=== PATIENT | male | born 1955 | race Caucasian/White ===

== ENCOUNTER → 2021-09-13 10:30 | Outpatient (BNVA) | payer OTHER, SELFPAY | PROVIDERS: PCP Internal Medicine; Visit Provider Hospitalist ==

== ENCOUNTER → 2021-12-01 08:55 | Outpatient (BNVA) | payer OTHER, SELFPAY | PROVIDERS: PCP Internal Medicine; Visit Provider Hospitalist ==

== ENCOUNTER → 2022-03-29 09:52 | Outpatient (BNVA) | payer OTHER, SELFPAY | PROVIDERS: PCP Internal Medicine; Visit Provider Hospitalist | DX: Z13.89 Encounter for screening for other disorder (principal) ==

== ENCOUNTER → 2022-11-15 09:43 | Outpatient (BNVA) | payer OTHER, SELFPAY | PROVIDERS: PCP Internal Medicine; Visit Provider Hospitalist | DX: R91.8 Other nonspecific abnormal finding of lung field (principal); J45.909 Unspecified asthma, uncomplicated; J31.0 Chronic rhinitis ==

== ENCOUNTER → 2023-05-24 09:13 | Outpatient (REF) | payer OTHER, SELFPAY | LOC: HO.SL 09:13 | PROVIDERS: PCP Internal Medicine; Visit Provider Hospitalist | DX: G47.33 Obstructive sleep apnea (adult) (pediatric) (principal) | CPT/HCPCS: 95806 ==

== ENCOUNTER → 2023-05-24 09:26 | Outpatient (BNV) | payer OTHER, SELFPAY | PROVIDERS: PCP Internal Medicine; Visit Provider Internal Medicine | DX: G47.33 Obstructive sleep apnea (adult) (pediatric) (principal) | CPT/HCPCS: 95806 ==

== ENCOUNTER 2023-08-02 09:17 | Outpatient (AMB) | payer OTHER, SELFPAY ==
--- NOTE | 2023-08-02 09:25 | A.OFFVIS_ITS ---
Intake Vital Signs 08/02/23 09:26 Height 5 ft 10 in Weight 210 lb 8.663 oz BMI 30.2 BP 128/70 Blood Pressure Location Rt brachial Position Sitting Pulse 57 Pulse Source Doppler Pulse Oximetry (%) 97 Oxygen Delivery Method Room Air Intake Visit Reasons: Sleep Study Results Allergies No Known Allergies Allergy (Verified 08/02/23 09:27) HPI HPI Comments History of Present Illness Details The patient is a 68-year-old gentleman very healthy and active with a known history of hypertension who apparently was in his usual state health until recently when he was demonstrating some increased daytime drowsiness. The patient did undergo home sleep study it demonstrated mild sleep apnea his side and severe sleep apnea his back. Based on the abnormal study in his increased cardiovascular risk factors the patient was referred to sleep specialist. The patient did undergo a CPAP titration study demonstrating significant central sleep apnea while titrating the CPAP pressures suggesting a complex sleep apnea. The patient was recommended to start CPAP therapy. Since starting CPAP the patient has been developing worsening sleep quality and also significantly worsening blood pressure now requiring more blood pressure medications. The patient typically sleeps on his side but while wearing the CPAP he needs to sleep on his back because otherwise the mask tends to leak. He does try to use it and has been trying to use it for all night however usually after to 3 hours can no longer tolerated. Based on the download data from the CPAP his AHI still elevated at 8. It is not clear how many of those episodes are central versus obstructive. Based on the patient's lack of response to CPAP it is very likely that he has complex sleep apnea. Based on the complexity of his sleep disorder the patient needs to have a in-lab sleep study in order to better quantify the degree central sleep apnea that he has and then titrate him to assess the best PAP therapy for his complex sleep apnea. It is my suspicion that he will a different PAP modality. In the meantime the patient does have significant difficulty with sleeping tolerating his CPAP. Therefore will try to sleep aid to see if we can assist with his tolerance at this time. Even on CPAP therapy the patient continues to have an elevated [place] score 1224. Continues to daytime drowsiness and now with worsening cardiovascular risk factors. 12/01/2021 the patient is here for a pulmonary follow-up visit. Overall the patient has been doing well. He continues to have daytime drowsiness. He responded well to the trazodone. However, on the 50 mg tablets sometimes he only gets about 4-5 hours of sleep. He was wondering if he could take additional medicine later on the night when he wakes up. However it is best that he takes it altogether. So I will increase his does prior to sleep to 75 mg-100mg. in the meantime he did undergo the in-lab sleep study. We reviewed together. He appears to have severe sleep apnea with an AHI greater than 33. Most of the obstructions or hypopneas. In view of the severe apnea the patient was titrated initially on CPAP in switched over to BiPAP. It appeared that he did better on CPAP between a pressure of 8-12 cm. On the BiPAP is started getting more apneas likely central. By the end of the study he was able to have more REM sleep which is reassuring. He also tried a new mask, N20 which was provided during the sleep study. He is very happy with this mask. I will reach out to his [employer] company to adjust his settings to the recommended APAP 8-12 cm along with the new mask. Otherwise the patient is without any other complaints. 03/29/2022 the patient is here for pulmon bennie follow-up visit. Overall he is doing okay. He has been using the trazodone at nighttime. He is getting about 4-5 hours of sleep. He typically starts getting uncomfortable with the mask up to 4 hours. He does take it off. 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 He is going to try to take the trazodone later on to see if he can get additional sleep. In addition to that we did talk about that is considering changing his mask. He does use a nasal mask which works for him although when he lays on his side tends to leak air. He may do better with a [employer] wisp mask. I will request 1 from the [employer]. In regards of his CPAP is currently set up APAP 8-12. He has an average pressure of 10 cm. His AHI is down to 1.2. No adjustments were made since the machine is working well for him. 06/06/2022 the patient is here for a pulmonary follow-up visit. He started complaining of difficulty tolerating his CPAP. Having significant nasal congestion. like he is getting sinus pressure after using his CPAP. He is using a nasal wisp mask that is comfortable but is only applying pressure of the nasal passages. The patient is agreeable to start a regimen for his rhinitis to try to clear it up. In the meantime he also will benefit from a fullface mask that would allow him to minimize the pressure of the nasal passages. The patient is also plan to see ENT soon. Therefore, he will start his nasal sprays and also sinus rinse at nighttime with the Neti bottle prior to putting on his CPAP and then come follow-up with ENT to see how he is responding to the therapy. In the meantime continue the pressures at the current settings since they are working for him. In addition to that he is using the trazodone. Seems like the 50-75 mg dose is sufficient more than that he gets groggy during the day if he has any difficulties with the trazodone with consider switching it to an alternative agent. 08/10/2022 the patient is here for a pulmonary follow-up visit. Still having some difficulty with the CPAP. Seven hard time with a fullface mask. He is wondering if he can try a different nasal mask. I did have an N30 I available. Is only a small head gear but seem to fit okay. He also should use a chinstrap. One was provided. He will try his CPAP with this new set up to see if she can not tolerated more. In addition to that the trazodone seems to make groggy during the daytime. Therefore, have try Ambien instead. Patient understands that he will fall asleep quicker but she went off much faster hopefully will not have any residual symptoms during daytime. The patient will continue using the CPAP at the current settings. If he does wake up with discomfort because of the pressures that he can always hip off and on on the CPAP to reset the pressure is too low the patient does have daytime drowsiness. His [place] score is elevated 10/06. He was wondering about hypnotics. Explained to him that worse she will need to probably tolerate his CPAP the whole night which to then assess daytime drowsiness after effective CPAP therapy. 11/15/2022 the patient is here for a pulmonary follow-up visit. He is tolerating the CPAP better. This is been reassuring. Feels like he is getting better rest. She is still having some daytime drowsiness however. [place] score is still elevated 08/06. The patient is averaging between 3-5 hours a night. His AHI is around 4.9 in his average pressure is around 10. I will try to increase his pressure some more to try to decrease the AHI below 5. However, we also note that he has of component of central sleep apnea so therefore it is likely that he is having some degree of apneas due to the central component that will not improve by increasing the pressures. Patient has been using Ambien. This appears to be affecting beneficial. I did ask him to take holidays from the medication to make sure that he does not buildup dependency. Will continue to use CPAP in continue to use a sleep aid. Will reassess in 3-4 months. The patient continues to have significant degree of sleep apnea after effectively treating his sleep apnea I did at that point will consider stimulant therapy to treat his persistent drowsiness. 08/02/2023 the patient is here for liss avery follow-up visit. The patient struggling with the CPAP he seems to be tolerating the pressures well and he does use it when he does use it for more than 4 hours but even after doing that he is still feeling like his daytime drowsiness is no better. Therefore he gets frustrated with the fact that he test uses machine that is affecting his sleep and therefore not making any improvements in his quality of life. The patient also was placed on Ambien. However, he had an event where he had at not episodic amnesia episode and amnesia episode that he believes that it was from the Ambien and stop that at that point. Therefore he is struggling with sleep also because he has a hard time sleeping. He also has muscle aches and discomfort. We talked about considering gabapentin. He is willing to try this time. He understands any may cause him some drowsiness in the morning. He have to get use to those side effects. In the meantime we also talked about positional therapy. We did look at the home sleep study in appears that his sleep apnea as much worsening sleeps on his back. He tries not to sleep on his back but he sometimes she is happens to do so. Therefore he will consider positional device to try that keep him from laying on his back. He can not lay on both right and left side he still has a little degree of sleep apnea but not severe. In addition to that we talked about a mandibular device either an elastic device or a mandibular advancement device through a dentist. He is going to consider these therapies as he is failed PAP therapy. Finally, we talked about the hypoglossal nerve stimulator. We talked about the surgical approach and we talked about the pros and cons about it. At this point I would rather try noninvasive approaches to see if he gets benefit and if he does not if he states symptomatic he can always be referred to an ENT doctor for the hypoglossal nerve stimulator evaluation. [facility] Medical History (Updated 08/02/23 @ 09:33 by Roscoe Contreras MD) Chronic rhinitis SUNNY on CPAP Insomnia Hypertension Complex sleep apnea syndrome Social History Patient Tobacco Use Status: Never used Tobacco Review of Systems Const Reports daytime sleepiness, Reports difficulty sleeping and Denies night sweats ENT Denies change in voice, Denies lip swelling, Denies mouth pain, Reports nasal congestion, Reports nasal discharge, Reports post nasal drip, Reports sinus pain, Reports sinus pressure and Denies tongue swelling Card Denies chest pain Resp Reports cough GI Denies abdominal pain Musc Denies no additional complaints Neuro Denies Neuro-related abnormal movements Psych Denies no additional complaints Jimenez/Lymph Denies easy bleeding and Denies lymphadenopathy Aller/Immun Denies lip swelling and Denies tongue swelling Physical Exam Vital Signs: Last Vital Signs Pulse 57 08/02/23 09:26 BP 128/70 08/02/23 09:26 Pulse Ox 97 08/02/23 09:26 Oxygen Delivery Method Room Air 08/02/23 09:26 BMI result Body Mass Index 30.2 Const General: alert Neck Neck: Yes normal visual inspection, Yes full ROM and Yes no lymphadenopathy Chest Chest palpation & inspection: normal inspection of the chest Resp Auscultation: clear to auscultation bilaterally Cardio Rate: regular rate Rhythm: regular rhythm Heart sounds: S1 normal heart sound present and S2 normal heart sound present GI Palpation (GI): Soft to palpation and nontender Auscultation: normal bowel sounds Skin General skin exam: rashes and/or lesions noted Assessment & Plan Assessment & Plan (1) SUNNY on CPAP: Code(s): G47.33 - Obstructive sleep apnea (adult) (pediatric); Z99.89 - Dependence on other enabling machines and devices (2) Insomnia: Code(s): G47.00 - Insomnia, unspecified Qualifiers: Insomnia type: primary Qualified Code(s): F51.01 - Primary insomnia (3) Chronic rhinitis: Code(s): J31.0 - Chronic rhinitis Plan holding APAP 8-14 cm based on titration study, continue N30i medium mask with chin strap( [employer], [place] from [place]) Trial positional therapy and consider OMD Consider hypoglossal nerve stimulator as the last option stopped Ambien start Gabapentin 300mg QHS continue Fluticasone AM continue astelin BID Avoid Afrin products Neti bottle at night Consider repeating PSG once he has a OMD Follow-up 4-6 months Medications: New gabapentin 300 mg PO BEDTIME 30 days 30 caps 5RF Coding Level of Care Code Est Pt Level 4 (65813) Diagnoses SUNNY on CPAP G47.33; Z99.89 Primary insomnia F51.01 Insomnia type: primary Chronic rhinitis J31.0 Time Spent (min) 20
[2023-08-02 09:26] VITALS: BP 128/70; PULSE 57; O2SAT 97; BMI 30.2
== END 2023-08-02 09:59 | disposition home or self-care (01) ==
PROVIDERS: PCP Internal Medicine; Visit Provider Hospitalist
DX: G47.33 Obstructive sleep apnea (adult) (pediatric) (principal); Z99.89 Dependence on other enabling machines and devices; F51.01 Primary insomnia; J31.0 Chronic rhinitis
CPT/HCPCS: 99214

== ENCOUNTER → 2023-08-02 09:17 | Outpatient (BNVA) | payer OTHER, SELFPAY | PROVIDERS: PCP Internal Medicine; Visit Provider Hospitalist ==

== ENCOUNTER 2025-04-18 09:43 | Outpatient (AMB) | payer OTHER, SELFPAY ==
[2025-04-18 09:46] VITALS: BP 150/84; PULSE 60; O2SAT 97; BMI 30.5
--- NOTE | 2025-04-18 09:46 | MHC.OFFVIS ---
Vital Signs 04/18/25 09:46 Height 5 ft 10 in Weight 212 lb 11.937 oz BMI 30.5 BP 150/84 H Blood Pressure Location Lt brachial Position Sitting Pulse 60 Pulse Source Pulse Oximeter Pulse Oximetry (%) 97 Oxygen Delivery Method Room Air Intake Visit Reasons: Sleep apnea Technical Operations Specialist Required: No Accompanied by: Self / Same As Patient Allergies No Known Allergies Allergy (Verified 04/18/25 09:48) HPI Comments Details: The patient is a 69-year-old gentleman very healthy and active with a known history of hypertension who apparently was in his usual state health until recently when he was demonstrating some increased daytime drowsiness. The patient did undergo home sleep study it demonstrated mild sleep apnea his side and severe sleep apnea his back. Based on the abnormal study in his increased cardiovascular risk factors the patient was referred to sleep specialist. The patient did undergo a CPAP titration study demonstrating significant central sleep apnea while titrating the CPAP pressures suggesting a complex sleep apnea. The patient was recommended to start CPAP therapy. Since starting CPAP the patient has been developing worsening sleep quality and also significantly worsening blood pressure now requiring more blood pressure medications. The patient typically sleeps on his side but while wearing the CPAP he needs to sleep on his back because otherwise the mask tends to leak. He does try to use it and has been trying to use it for all night however usually after to 3 hours can no longer tolerated. Based on the download data from the CPAP his AHI still elevated at 8. It is not clear how many of those episodes are central versus obstructive. Based on the patient's lack of response to CPAP it is very likely that he has complex sleep apnea. Based on the complexity of his sleep disorder the patient needs to have a in-lab sleep study in order to better quantify the degree central sleep apnea that he has and then titrate him to assess the best PAP therapy for his complex sleep apnea. It is my suspicion that he will a different PAP modality. In the meantime the patient does have significant difficulty with sleeping tolerating his CPAP. Therefore will try to sleep aid to see if we can assist with his tolerance at this time. Even on CPAP therapy the patient continues to have an elevated Estill score 12/24. Continues to daytime drowsiness and now with worsening cardiovascular risk factors. 12/01/2021 the patient is here for a pulmonary follow-up visit. Overall the patient has been doing well. He continues to have daytime drowsiness. He responded well to the trazodone. However, on the 50 mg tablets sometimes he only gets about 4-5 hours of sleep. He was wondering if he could take additional medicine later on the night when he wakes up. However it is best that he takes it altogether. So I will increase his does prior to sleep to 75 mg-100mg. in the meantime he did undergo the in-lab sleep study. We reviewed together. He appears to have severe sleep apnea with an AHI greater than 33. Most of the obstructions or hypopneas. In view of the severe apnea the patient was titrated initially on CPAP in switched over to BiPAP. It appeared that he did better on CPAP between a pressure of 8-12 cm. On the BiPAP is started getting more apneas likely central. By the end of the study he was able to have more REM sleep which is reassuring. He also tried a new mask, N20 which was provided during the sleep study. He is very happy with this mask. I will reach out to his [employer] to adjust his settings to the recommended APAP 8-12 cm along with the new mask. Otherwise the patient is without any other complaints. 03/29/2022 the patient is here for pulmonary follow-up visit. Overall he is doing okay. He has been using the trazodone at nighttime. He is getting about 4-5 hours of sleep. He typically starts getting uncomfortable with the mask up to 4 hours. He does take it off. 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 He is going to try to take the trazodone later on to see if he can get additional sleep. In addition to that we did talk about that is considering changing his mask. He does use a nasal mask which works for him although when he lays on his side tends to leak air. He may do better with a [employer] wisp mask. I will request 1 from the [employer]. In regards of his CPAP is currently set up APAP 8-12. He has an average pressure of 10 cm. His AHI is down to 1.2. No adjustments were made since the machine is working well for him. 06/06/2022 the patient is here for a pulmonary follow-up visit. He started complaining of difficulty tolerating his CPAP. Having significant nasal congestion. like he is getting sinus pressure after using his CPAP. He is using a nasal wisp mask that is comfortable but is only applying pressure of the nasal passages. The patient is agreeable to start a regimen for his rhinitis to try to clear it up. In the meantime he also will benefit from a fullface mask that would allow him to minimize the pressure of the nasal passages. The patient is also plan to see ENT soon. Therefore, he will start his nasal sprays and also sinus rinse at nighttime with the Neti bottle prior to putting on his CPAP and then come follow-up with ENT to see how he is responding to the therapy. In the meantime continue the pressures at the current settings since they are working for him. In addition to that he is using the trazodone. Seems like the 50-75 mg dose is sufficient more than that he gets groggy during the day if he has any difficulties with the trazodone with consider switching it to an alternative agent. 08/10/2022 the patient is here for a pulmonary follow-up visit. Still having some difficulty with the CPAP. Seven hard time with a fullface mask. He is wondering if he can try a different nasal mask. I did have an N30 I available. Is only a small head gear but seem to fit okay. He also should use a chinstrap. One was provided. He will try his CPAP with this new set up to see if she can not tolerated more. In addition to that the trazodone seems to make groggy during the daytime. Therefore, have try Ambien instead. Patient understands that he will fall asleep quicker but she went off much faster hopefully will not have any residual symptoms during daytime. The patient will continue using the CPAP at the current settings. If he does wake up with discomfort because of the pressures that he can always hip off and on on the CPAP to reset the pressure is too low the patient does have daytime drowsiness. His Estill score is elevated 10/06. He was wondering about hypnotics. Explained to him that worse she will need to probably tolerate his CPAP the whole night which to then assess daytime drowsiness after effective CPAP therapy. 11/15/2022 the patient is here for a pulmonary follow-up visit. He is tolerating the CPAP better. This is been reassuring. Feels like he is getting better rest. She is still having some daytime drowsiness however. Estill score is still elevated 08/06. The patient is averaging between 3-5 hours a night. His AHI is around 4.9 in his average pressure is around 10. I will try to increase his pressure some more to try to decrease the AHI below 5. However, we also note that he has of component of central sleep apnea so therefore it is likely that he is having some degree of apneas due to the central component that will not improve by increasing the pressures. Patient has been using Ambien. This appears to be affecting beneficial. I did ask him to take holidays from the medication to make sure that he does not buildup dependency. Will continue to use CPAP in continue to use a sleep aid. Will reassess in 3-4 months. The patient continues to have significant degree of sleep apnea after effectively treating his sleep apnea I did at that point will consider stimulant therapy to treat his persistent drowsiness. 08/02/2023 the patient is here for pulmonary follow-up visit. The patient struggling with the CPAP he seems to be tolerating the pressures well and he does use it when he does use it for more than 4 hours but even after doing that he is still feeling like his daytime drowsiness is no better. Therefore he gets frustrated with the fact that he test uses machine that is affecting his sleep and therefore not making any improvements in his quality of life. The patient also was placed on Ambien. However, he had an event where he had at not episodic amnesia episode and amnesia episode that he believes that it was from the Ambien and stop that at that point. Therefore he is struggling with sleep also because he has a hard time sleeping. He also has muscle aches and discomfort. We talked about considering gabapentin. He is willing to try this time. He understands any may cause him some drowsiness in the morning. He have to get use to those side effects. In the meantime we also talked about positional therapy. We did look at the home sleep study in appears that his sleep apnea as much worsening sleeps on his back. He tries not to sleep on his back but he sometimes she is happens to do so. Therefore he will consider positional device to try that keep him from laying on his back. He can not lay on both right and left side he still has a little degree of sleep apnea but not severe. In addition to that we talked about a mandibular device either an elastic device or a mandibular advancement device through a dentist. He is going to consider these therapies as he is failed PAP therapy. Finally, we talked about the hypoglossal nerve stimulator. We talked about the surgical approach and we talked about the pros and cons about it. At this point I would rather try noninvasive approaches to see if he gets benefit and if he does not if he states symptomatic he can always be referred to an ENT doctor for the hypoglossal nerve stimulator evaluation. 04/20/2025 the patient is here for pulmonary follow-up visit. Overall he is doing okay. He is still having some daytime drowsiness. Estill score 7 a snyder. He is trying to maintain positional therapy by now sleeping on his back to minimize the apneic episodes. We did review his sleep study and seems like he is better when he is on his left side down. We also talked about a mouth piece. A elastic mandibular advancing device may be something that he can get specially if he has any evidence of grinding of his teeth. He is going to consider. Also for sleep aids he is using gabapentin. This seems to be working but is not enough of a dose. Therefore will double up on it. The patient also can try small dose of trazodone specially the doubling up on the gabapentin is not sufficient. He will start 1st with the gabapentin and then consider the trazodone and he can also use it as needed. He is also taking Motrin every night. Explained to him the risk of taking Motrin specially in an empty stomach. He can take the full stomach. He can also continue holistic therapy such as turmeric and he is already taking glucosamine chondroitin. otherwise the patient is doing well, will plan to follow-up sometime in the fall. If he has any issues prior to that he will call for an earlier assessment. [facility] Medical History (Updated 08/02/23 @ 09:33 by Roscoe Contreras MD) Chronic rhinitis SUNNY on CPAP Insomnia Hypertension Complex sleep apnea syndrome Social History Patient Tobacco Use Status: Never used Tobacco Review of Systems Const Denies chills, Reports daytime sleepiness, Reports difficulty sleeping, Denies fatigue, Denies fever(s), Denies weight gain and Denies weight loss ENT Denies dizziness, Denies lip swelling and Denies tongue swelling Card Denies chest pain, Denies leg edema, Denies lightheadedness, Denies palpitations, Denies dyspnea on exertion, Denies orthopnea and Denies other Resp Denies cough and Denies dyspnea on exertion GI Denies hematochezia and Denies change in stool character Musc Denies abnormal gait, Reports back pain, Denies muscle weakness, Denies numbness, Denies radiating pain into limb and Denies tingling Neuro Denies abnormal gait, Denies dizziness, Denies numbness and Denies tingling Psych Denies no additional complaints Endo Denies fatigue and Denies palpitations Jimenez/Lymph Denies easy bleeding and Denies lymphadenopathy Aller/Immun Denies lip swelling and Denies tongue swelling Physical Exam Vital Signs: Last Vital Signs Pulse 60 04/18/25 09:46 BP 150/84 H 04/18/25 09:46 Pulse Ox 97 04/18/25 09:46 Oxygen Delivery Method Room Air 04/18/25 09:46 BMI result Body Mass Index 30.5 Const General: alert Neck Neck: Yes normal visual inspection, Yes full ROM and Yes no lymphadenopathy Chest Chest palpation & inspection: normal inspection of the chest Resp Auscultation: clear to auscultation bilaterally Cardio Rate: regular rate Rhythm: regular rhythm Heart sounds: S1 normal heart sound present and S2 normal heart sound present GI Palpation (GI): Soft to palpation and nontender Auscultation: normal bowel sounds Skin General skin exam: rashes and/or lesions noted Assessment & Plan Assessment & Plan (1) Insomnia: Code(s): G47.00 - Insomnia, unspecified Category: Medical Qualifiers: Insomnia type: primary Qualified Code(s): F51.01 - Primary insomnia (2) Chronic rhinitis: Code(s): J31.0 - Chronic rhinitis Category: Medical (3) SUNNY (obstructive sleep apnea): Code(s): G47.33 - Obstructive sleep apnea (adult) (pediatric) Category: Medical Plan holding APAP continue positional therapy and consider OMD stopped Ambien Increase Gabapentin 600mg QHS considerTrazodone continue Fluticasone AM continue astelin BID Neti bottle at night Follow-up 4-6 months Medications: New trazodone 50 mg PO BEDTIME 30 tabs 11RF sleep 30 days Changed From gabapentin 300 mg PO BEDTIME 90 days 90 caps 3RF To gabapentin 600 mg (2 x 300 mg) PO BEDTIME 180 caps 3RF 90 days Coding Level of Care Code Est Pt Level 4 (86637) Complex EM visit Add On G2211 Diagnoses Primary insomnia F51.01 Insomnia type: primary Chronic rhinitis J31.0 SUNNY (obstructive sleep apnea) G47.33 Time Spent (min) 17
--- OUTSIDE RECORDS SUMMARY | 2025-04-18 10:21 | XMS_ITS | Clinical Summary ---
Author Organization [facility] Address [address] [place] [address] Care Team Providers Care Hog Ribber Name Role Phone Tang Langford MD Primary Care Provider + [phone] Allergies Active Allergy Reactions Criticality Noted Date Comments Nuts Anaphylaxis High 04/20/2015 Pollen Extract Medium 12/13/2022 Other reaction(s): Unknown/Patient and Family Unable to Define seasonal Tree Nuts Anaphylaxis High 05/30/2014 Medications Medication Sig Dispensed Refills Start Date End Date Status doxazosin (CARDURA) 8 MG tablet Take 1 tablet (8 mg total) by mouth daily. 90 tablet 4 03/20/2019 Active Additional Information Patient taking differently:8 mg OralEvery Night at Bedtime, Reason: Other, Reported on 10/26/2022 Ibuprofen (ADVIL PO) Take by mouth. 400 mg. 3 times daily as needed 0 Active Melatonin 5 MG CAPS Take one at bedtime Max dose is 10mg daily 30 each 0 02/03/2020 Active tadalafil (CIALIS) 20 MG tablet TAKE 1 TABLET BY MOUTH 1 HOUR PRIOR TO RELATIONS NOT TO BE REPEATED WITHIN 72 HOURS 0 02/24/2020 Active fluticasone (FLONASE) 50 MCG/ACT nasal spray SHAKE LIQUID AND USE 2 SPRAYS IN EACH NOSTRIL EVERY DAY 16 g 2 12/13/2020 Active amLODIPine (NORVASC) tablet 5 mg TAKE 1 TABLET BY MOUTH EVERY DAY 90 tablet 4 08/10/2023 Active metoprolol succinate (TOPROL-XL) 24 hr tablet 25 mg TAKE 1 TABLET BY MOUTH EVERY DAY 90 tablet 4 09/27/2023 Active Acetaminophen-Code ine 300-30 MG per tablet TAKE 1 TABLET BY MOUTH EVERY 4 HOURS NEEDED 120 tablet 0 06/05/2024 Active gabapentin (NEURONTIN) 300 MG capsule Take 1 capsule (300 mg total) by mouth every night at bedtime. 0 05/21/2024 Active lisinopril (PRINIVIL,ZESTRIL) tablet 40 mg TAKE 1 TABLET ORALLY DAILY--CALL OFFICE TO BOOK APPT AND GO FOR BLOOD WORK 90 tablet 3 07/29/2024 Active hydrocortisone (ANUSOL-HC) 2.5 % CREA perianal cream Place around the anus 2 (two) times a day. 28 g 4 09/10/2024 Active Active Problems Problem Noted Date Diagnosed Date Low maternal serum vitamin B12 02/22/2023 Thrombocytopenia 02/22/2023 Chronic headache 08/23/2022 Acute arthritis 03/23/2021 Obstructive sleep apnea 03/23/2021 Excessive daytime sleepiness 07/27/2020 Gastroesophageal reflux disease without esophagi tis 11/12/2019 Impingement syndrome, shoulder, left 08/27/2019 Olecranon bursitis of right elbow 08/27/2019 Neck pain 08/19/2019 Essential hypertension 07/24/2019 Elbow swelling, right 06/19/2019 Olecranon bursitis, right elbow 06/19/2019 Cough 03/26/2019 Stress 03/26/2019 Diverticulitis of colon 09/25/2018 Acute conjunctivitis of right eye 09/03/2018 Chronic pain of both shoulders 08/21/2018 Palpitations 05/08/2018 Primary insomnia 05/08/2018 Vertigo 01/23/2018 Tension type headache 11/07/2017 Gastric ulcer without hemorrhage or perforation 11/07/2017 Acute left-sided thoracic back pain 08/01/2017 Tick bite 07/03/2017 Depression 01/16/2017 Environmental allergies 10/10/2016 Acute upper respiratory infection 01/18/2016 Cellulitis of toe of left foot 11/02/2015 Erectile dysfunction 11/02/2015 Diaphragmatic hernia 07/10/2015 External hemorrhoid, thrombosed 07/10/2015 Degenerative joint disease 07/10/2015 Diverticulosis 07/10/2015 Spondylolysis 07/10/2015 Gallstones 07/10/2015 Bradycardia 07/10/2015 Overview: H/o this 04/2014 ekg Nephritis 07/10/2015 Overview: H/o Asthma 07/10/2015 Enlarged prostate with urinary retention 014 Resolved Problems Problem Noted Date Diagnosed Date Resolved Date Impingement syndrome of left shoulder 08/27/2019 09/25/2019 Other specified pre-operative examination 08/27/2019 11/12/2019 Bursitis of right elbow 06/17/201907/14 Diverticulitis 10/18/2018 11/02/2018 Acute diverticulitis 10/17/2018 018 BMI 30.0-30.9,adult 07/03/2017 11/02/20 18 BPH (benign prostatic hyperplasia) 12/26/2016 11/02/2018 Other specified pre-operative examination 12/21/2016 03/26/2019 Fatigue 05/30/2016 07/27/2020 Fever 05/18/2016 11/02/2018 Skin lesion 07/10/2015 10/27/2021 Immunizations Name Administration Dates Next Due Covid-19, Unspecified formulation 09/14/2021, DTaP 11/13/2003 Tdap 02/22/2023 Family History Medical History Relation Name Comments Hypertension Brother Cancer Father lung Hypertension Father Cancer Mother colon Heart disease Mother Kidney disease Sister Breast cancer Neg Hx Nephrolithiasis Neg Hx Prostate cancer Neg Hx Relation Name Status Comments Brother Father Mother Sister Alive Social History Tobacco Use Types Packs/Day Years Used Date Smoking Tobacco: Never Passive Smoke Exposure: Past Smokeless Tobacco: Never Tobacco Cessation:Counseling Given: Not Answered Alcohol Use Standard Drinks/Week Comments Yes 1 (1 standard drink = 0.6 oz pur e alcohol) wkend Sex and Gender Information Value Date Recorded Sex Assigned at Male 10/18/2018 7:29 PM EST Gender Identity Male 04/09/2020 1:14 PM EDT Sexual Orientation Not on file Job Start Date Occupation Industry Not on file Not on file Not on file Last Filed Vital Signs Vital Sign Reading Time Taken Comments Blood Pressure 162/102 06/24/2024 4:03 PM EDT Pulse 82 06/24/2024 4:03 PM EDT Temperature 36.6 ??C (97.9 ??F) 06/24/2024 4:03 PM ED T Respiratory Rate 18 05/25/2023 9:51 AM EDT Oxygen Saturation 96% 06/24/2024 4:03 PM EDT Inhaled Oxygen Concentration - - Weight 96.2 kg (212 lb) 06/24/2024 4:03 PM EDT Height 175.3 cm (5' 9 ) 06/24/2024 4:03 PM EDT Body Mass Index 31.31 06/24/2024 4:03 PM EDT Plan of Treatment Health Maintenance Due Date Last Done Comments Pneumococcal Vaccine (1 of 2 - PCV) 1963 Preventative Health Evaluation 1975 Shingrix-Zoster Vaccine (1 of 2) 2007 RSV Adult > 60+ Yrs or (1 - Risk 60-74 years 1-dose series) 2017 Depression Screening 08/21/2019 08/21/2018, 07/04/20 17 Fall Risk Assessment 2022 COVID-19 Vaccine ( - season) 2024 09/14/2021, 08/03/2021 Influenza Vaccine (#1) 2024 BMI Counseling 06/24/2025 06/24/2024, 05/13, 03/13/2023, Additional history exists Colon Cancer Screening (Colonoscopy) 10/09/2027 10/09/2017 DTap / Tdap / Td (3 - Td or Tdap) 02/22/2033 02/22/2023, 11/13/2003 Hepatitis C Screening Completed 03/13/2023 Hepatitis B Vaccines Aged Out No long er eligible based on patient's age to complete this topic RSV Ped < 20 months Aged Out No longe r eligible based on patient's age to complete this topic Medical Devices Implanted Type Area Fuel Oil Clerk Device Identifier Shelf Expiration Date Model / Serial / Lot Mesh 3dmax Large 6x4in Nonabs Patch Preformed Polypropylene - [id number] - [id number] Implanted:Qty: 1 on 06/17/2014 by Yang Pacheco MD at [facility] [employer] [id number] / / [id number] Mesh 3dmax Large 6x4in Nonabs Patch Preformed Polypropylene - [id number] - [id number] Implanted:Qty: 1 on 06/17/2014 by Yang Pacheco MD at [facility] and Med N/A: Abdomen [employer] [id number] / / [id number] Mesh Composix L\P Ellipse 6.2x4.2in Patch Soft Lightweight - [id number] - [id number] Implanted:Qty: 1 on 06/17/2014 by Yang Pacheco MD at [facility] and Med [employer] [id number] / / [id number] Echo Ellipse L15cm X W10cm - [id number] - [id number] Implanted:Qty: 1 on 04/10/2020 by Yang Pacheco MD at [facility] and Med N/A: Abdomen [employer] 09/09/2020 [id number] / / [id number] Advance Directives For more information, please contact: [phone] Latest Code Status on File Code Status Date Activated Date Inactivated Comments Full Code 10/17/2018 8:11 PM 10/22/2018 6:51 PM Code Status History Code Status Date Activated Date Inactivated Comments Full Code 06/17/2014 11:37 AM 06/19/2014 6:41 PM This c ode status was ascertained in the following way: discussion with patient. Care Teams Hog Ribber Relationship Specialty Start Date End Date Tang Langford MD PCP - General Internal Medicine 05/30/14
== END 2025-04-18 10:13 | disposition home or self-care (01) ==
LOC: HO.HPS 09:44
PROVIDERS: PCP Internal Medicine; Visit Provider Hospitalist
DX: F51.01 Primary insomnia (principal); J31.0 Chronic rhinitis; G47.33 Obstructive sleep apnea (adult) (pediatric)
CPT/HCPCS: 99214

== ENCOUNTER → 2025-04-18 09:43 | Outpatient (BNVA) | payer OTHER, SELFPAY | PROVIDERS: PCP Internal Medicine; Visit Provider Hospitalist ==

== ENCOUNTER 2025-10-20 09:33 | Outpatient (AMB) | payer OTHER, SELFPAY ==
[2025-10-20 09:35] VITALS: BP 160/72; PULSE 65; O2SAT 98; BMI 30.8
--- NOTE | 2025-10-20 09:35 | A.OFFVIS_ITS ---
Vital Signs 10/20/25 09:35 Height 5 ft 10 in Weight 214 lb 15.211 oz BMI 30.8 BP 160/72 H Blood Pressure Location Lt brachial Position Sitting Pulse 65 Pulse Source Pulse Oximeter Pulse Oximetry (%) 98 Oxygen Delivery Method Room Air Intake Visit Reasons: Sleep apnea Minute Clerk Required: No Accompanied by: Self / Same As Patient Allergies No Known Allergies Allergy (Verified 10/20/25 09:38) HPI Comments Details: The patient is a 70-year-old gentleman very healthy and active with a known history of hypertension who apparently was in his usual state health until recently when he was demonstrating some increased daytime drowsiness. The patient did undergo home sleep study it demonstrated mild sleep apnea his side and severe sleep apnea his back. Based on the abnormal study in his increased cardiovascular risk factors the patient was referred to sleep specialist. The patient did undergo a CPAP titration study demonstrating significant central sleep apnea while titrating the CPAP pressures suggesting a complex sleep apnea. The patient was recommended to start CPAP therapy. Since starting CPAP the patient has been developing worsening sleep quality and also significantly worsening blood pressure now requiring more blood pressure medications. The patient typically sleeps on his side but while wearing the CPAP he needs to sleep on his back because otherwise the mask tends to leak. He does try to use it and has been trying to use it for all night however usually after to 3 hours can no longer tolerated. Based on the download data from the CPAP his AHI still elevated at 8. It is not clear how many of those episodes are central versus obstructive. Based on the patient's lack of response to CPAP it is very likely that he has complex sleep apnea. Based on the complexity of his sleep disorder the patient needs to have a in-lab sleep study in order to better quantify the degree central sleep apnea that he has and then titrate him to assess the best PAP therapy for his complex sleep apnea. It is my suspicion that he will a different PAP modality. In the meantime the patient does have significant difficulty with sleeping tolerating his CPAP. Therefore will try to sleep aid to see if we can assist with his tolerance at this time. Even on CPAP therapy the patient continues to have an elevated Farson score 11/05. Continues to daytime drowsiness and now with worsening cardiovascular risk factors. 12/01/2021 the patient is here for a pulmonary follow-up visit. Overall the patient has been doing well. He continues to have daytime drowsiness. He responded well to the trazodone. However, on the 50 mg tablets sometimes he only gets about 4-5 hours of sleep. He was wondering if he could take additional medicine later on the night when he wakes up. However it is best that he takes it altogether. So I will increase his does prior to sleep to 75 mg-100mg. in the meantime he did undergo the in-lab sleep study. We reviewed together. He appears to have severe sleep apnea with an AHI greater than 33. Most of the obstructions or hypopneas. In view of the severe apnea the patient was titrated initially on CPAP in switched over to BiPAP. It appeared that he did better on CPAP between a pressure of 8-12 cm. On the BiPAP is started getting more apneas likely central. By the end of the study he was able to have more REM sleep which is reassuring. He also tried a new mask, N20 which was provided during the sleep study. He is very happy with this mask. I will reach out to his [employer] company to adjust his settings to the recommended APAP 8-12 cm along with the new mask. Otherwise the patient is without any other complaints. 03/29/2022 the patient is here for pulmonary follow-up visit. Overall he is doing okay. He has been using the trazodone at nighttime. He is getting about 4-5 hours of sleep. He typically starts getting uncomfortable with the mask up to 4 hours. He does take it off. 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 He is going to try to take the trazodone later on to see if he can get additional sleep. In addition to that we did talk about that is considering changing his mask. He does use a nasal mask which works for him although when he lays on his side tends to leak air. He may do better with a [employer] wisp mask. I will request 1 from the [employer]. In regards of his CPAP is currently set up APAP 8-12. He has an avera ge pressure of 10 cm. His AHI is down to 1.2. No adjustments were made since the machine is working well for him. 06/06/2022 the patient is here for a pulmonary follow-up visit. He started complaining of difficulty tolerating his CPAP. Having significant nasal congestion. like he is getting sinus pressure after using his CPAP. He is using a nasal wisp mask that is comfortable but is only applying pressure of the nasal passages. The patient is agreeable to start a regimen for his rhinitis to try to clear it up. In the meantime he also will benefit from a fullface mask that would allow him to minimize the pressure of the nasal passages. The patient is also plan to see ENT soon. Therefore, he will start his nasal sprays and also sinus rinse at nighttime with the Neti bottle prior to putting on his CPAP and then come follow-up with ENT to see how he is responding to the therapy. In the meantime continue the pressures at the current settings since they are working for him. In addition to that he is using the trazodone. Seems like the 50-75 mg dose is sufficient more than that he gets groggy during the day if he has any difficulties with the trazodone with consider switching it to an alternative agent. 08/10/2022 the patient is here for a pulmonary follow-up visit. Still having some difficulty with the CPAP. Seven hard time with a fullface mask. He is wondering if he can try a different nasal mask. I did have an N30 I available. Is only a small head gear but seem to fit okay. He also should use a chinstrap. One was provided. He will try his CPAP with this new set up to see if she can not tolerated more. In addition to that the trazodone seems to make groggy during the daytime. Therefore, have try Ambien instead. Patient understands that he will fall asleep quicker but she went off much faster hopefully will not have any residual symptoms during daytime. The patient will continue using the CPAP at the current settings. If he does wake up with discomfort because of the pressures that he can always hip off and on on the CPAP to reset the pressure is too low the patient does have daytime drowsiness. His Farson score is elevated 10/06. He was wondering about hypnotics. Explained to him that worse she will need to probably tolerate his CPAP the whole night which to then assess daytime drowsiness after effective CPAP therapy. 11/15/2022 the patient is here for a pulmonary follow-up visit. He is tolerating the CPAP better. This is been reassuring. Feels like he is getting better rest. She is still having some daytime drowsiness however. Farson score is still elevated 08/06. The patient is averaging between 3-5 hours a night. His AHI is around 4.9 in his average pressure is around 10. I will try to increase his pressure some more to try to decrease the AHI below 5. However, we also note that he has of component of central sleep apnea so therefore it is likely that he is having some degree of apneas due to the central component that will not improve by increasing the pressures. Patient has been using Ambien. This appears to be affecting beneficial. I did ask him to take holidays from the medication to make sure that he does not buildup dependency. Will continue to use CPAP in continue to use a sleep aid. Will reassess in 3-4 months. The patient continues to have significant degree of sleep apnea after effectively treating his sleep apnea I did at that point will consider stimulant therapy to treat his persistent drowsiness. 08/02/2023 the patient is here for pulmonary follow-up visit. The patient struggling with the CPAP he seems to be tolerating the pressures well and he does use it when he does use it for more than 4 hours but even after doing that he is still feeling like his daytime drowsiness is no better. Therefore he gets frustrated with the fact that he test uses machine that is affecting his sleep and therefore not making any improvements in his quality of life. The patient also was placed on Ambien. However, he had an event where he had at not episodic amnesia episode and amnesia episode that he believes that it was from the Ambien and stop that at that point. Therefore he is struggling with sleep also because he has a hard time sleeping. He also has muscle aches and discomfort. We talked about considering gabapentin. He is willing to try this time. He understands any may cause him some drowsiness in the morning. He have to get use to those side effects. In the meantime we also talked about positional therapy. We did look at the home sleep study in appears that his sleep apnea as much worsening sleeps on his back. He tries not to sleep on his back but he sometimes she is happens to do so. Therefore he will consider positional device to try that keep him from laying on his back. He can not lay on both right and left side he still has a little degree of sleep apnea but not severe. In addition to that we talked about a mandibular device either an elastic device or a mandibular advancement device through a dentist. He is going to consider these therapies as he is failed PAP therapy. Finally, we talked about the hypoglossal nerve stimulator. We talked about the surgical approach and we talked about the pros and cons about it. At this point I would rather try noninvasive approaches to see if he gets benefit and if he does not if he states symptomatic he can always be referred to an ENT doctor for the hypoglossal nerve stimulator evaluation. 04/20/2025 the patient is here for pulmonary follow-up visit. Overall he is doing okay. He is still having some daytime drowsiness. Farson score 7 a snyder. He is trying to maintain positional therapy by now sleeping on his back to minimize the apneic episodes. We did review his sleep study and seems like he is better when he is on his left side down. We also talked about a mouth piece. A elastic mandibular advancing device may be something that he can get specially if he has any evidence of grinding of his teeth. He is going to consider. Also for sleep aids he is using gabapentin. This seems to be working but is not enough of a dose. Therefore will double up on it. The patient also can try small dose of trazodone specially the doubling up on the gabapentin is not sufficient. He will start 1st with the gabapentin and then consider the trazodone and he can also use it as needed. He is also taking Motrin every night. Explained to him the risk of taking Motrin specially in an empty stomach. He can take the full stomach. He can also continue holistic therapy such as turmeric and he is already taking glucosamine chondroitin. otherwise the patient is doing well, will plan to follow-up sometime in the fall. If he has any issues prior to that he will call for an earlier assessment. 10/20/2025 the patient is here for pulmonary follow-up visit. The patient overall is doing well. He is having significant neck discomfort and he is scheduled to undergo cervical spine surgery in the coming weeks. The patient currently is medically optimized from pulmonary standpoint may be able to proceed with anesthesia and surgery at this time. The patient does have a history of sleep apnea and has been using positional therapy. He also has a mandibular device that he started using. The patient did have a hard time with PAP therapy. Denies any significant shortness of breath. He is very active as he is exercising on a regular basis. He is still struggling with sleep. He is taking the gabapentin. He has stopped taking the trazodone since it was not helping. And he also takes melatonin for sleep. Will plan to repeat a sleep study after he comes from his surgery. Will plan to do a home sleep study with his mandibular device to see the effectiveness. If he continues to have daytime drowsiness even after effective treatment of his sleep apnea then we would need to consider treating the persistent daytime drowsiness. The patient follow-up in 6 months if he has any issues prior to this she can always call for further recommendations. [facility] Medical History (Updated 10/20/25 @ 09:59 by Roscoe Contreras MD) Pre-op chest exam Chronic rhinitis SUNNY on CPAP Insomnia Hypertension Complex sleep apnea syndrome Social History Patient Tobacco Use Status: Never used Tobacco Review of Systems Const Denies chills, Reports daytime sleepiness, Reports difficulty sleeping, Denies fatigue and Denies fever(s) ENT Denies dizziness, Denies lip swelling, Reports neck pain and Denies tongue swelling Card Denies chest pain, Denies leg edema, Denies lightheadedness, Denies palpitations, Denies dyspnea on exertion, Denies orthopnea and Denies other Resp Reports cough and Denies dyspnea on exertion GI Denies hematochezia and Denies change in stool character Musc Denies abnormal gait, Reports back pain, Denies muscle weakness, Reports neck pain, Reports numbness, Denies radiating pain into limb and Denies tingling Neuro Denies abnormal gait, Denies dizziness, Reports numbness and Denies tingling Psych Denies no additional complaints Endo Denies fatigue and Denies palpitations Jimenez/Lymph Denies easy bleeding and Denies lymphadenopathy Aller/Immun Denies lip swelling and Denies tongue swelling Physical Exam Vital Signs: Last Vital Signs Pulse 65 10/20/25 09:35 BP 160/72 H 10/20/25 09:35 Pulse Ox 98 10/20/25 09:35 Oxygen Delivery Method Room Air 10/20/25 09:35 BMI result Body Mass Index 30.8 Const General: alert Neck Neck: Yes normal visual inspection, Yes full ROM and Yes no lymphadenopathy Chest Chest palpation & inspection: normal inspection of the chest Resp Effort & Inspection: normal respiratory effort Auscultation: clear to auscultation bilaterally Cardio Rate: regular rate Rhythm: regular rhythm Heart sounds: S1 normal heart sound present and S2 normal heart sound present GI Palpation (GI): Soft to palpation and nontender Auscultation: normal bowel sounds Skin General skin exam: rashes and/or lesions noted Assessment & Plan Assessment & Plan (1) Insomnia: Code(s): G47.00 - Insomnia, unspecified Category: Medical Qualifiers: Insomnia type: primary Qualified Code(s): F51.01 - Primary insomnia (2) Chronic rhinitis: Code(s): J31.0 - Chronic rhinitis Category: Medical (3) SUNNY (obstructive sleep apnea): Code(s): G47.33 - Obstructive sleep apnea (adult) (pediatric) Category: Medical (4) Pre-op chest exam: Code(s): Z01.811 - Encounter for preprocedural respiratory examination Category: Medical Plan Proceed to anesthesia and spine surgery at this time. holding APAP continue positional therapy with OMD. Will plan to repeat Home PSG once recovered from surgery Gabapentin 600mg QHS stopped Trazodone continue Fluticasone AM continue astelin BID Neti bottle at night Follow-up 6 months Coding Level of Care Code Est Pt Level 4 (14090) Complex visit Add On G2211 Diagnoses Primary insomnia F51.01 Insomnia type: primary Chronic rhinitis J31.0 SUNNY (obstructive sleep apnea) G47.33 Pre-op chest exam Z01.811 Time Spent (min) 17
== END 2025-10-20 10:15 | disposition home or self-care (01) ==
LOC: HO.HPS 09:34
PROVIDERS: PCP Internal Medicine; Visit Provider Hospitalist
DX: F51.01 Primary insomnia (principal); J31.0 Chronic rhinitis; G47.33 Obstructive sleep apnea (adult) (pediatric); Z01.811 Encounter for preprocedural respiratory examination
CPT/HCPCS: 99214